=== PATIENT | female | born 1990 | race Caucasian/White ===

== ENCOUNTER 2016-12-27 20:31 | Emergency (ER) | payer BC ==
[2016-12-27 21:05] VITALS: BP 132/69
[2016-12-27] MEDS ORDERED: Acetaminophen 325 MG Tab PO ONE (21:59)
--- NOTE | 2016-12-27 22:10 | EDM.PDOC ---
ED HPI GENERAL MEDICAL PROBLEM - General Chief Complaint: ENT Problem Stated Complaint: 10 WKS PREG/FEVER/SORE THROAT Time Seen by Provider: 12/27/16 21:33 Source of Information: Reports: Patient History Limitations: Reports: No Limitations - History of Present Illness INITIAL COMMENTS - FREE TEXT/NARRATIVE: sinus headache and congestion; this is a 26 year old female presents to ER for evaluation. She reports is camping near [place], [place]. , has been sick since weekend on Sunday, called her Family Doctor who was going to order antibiotic for her, but she declined, she still is not any better. at 10 weeks 3 days; denies any spotting, bleeding or discharge, no cramping. Onset: Gradual Duration: Getting Worse Location: Reports: Head Quality: Reports: Pressure, Throbbing (pressure in sinus) Severity: Moderate Improves with: Reports: None Worsens with: Reports: None Associated Symptoms: Reports: Cough, Fever/Chills, Loss of Appetite Treatments [employer]: Reports: Acetaminophen Bilateral Headache Pain Score (Numeric/FACES): 6 - Related Data Allergies Allergy/AdvReac Type Severity Reaction Status Date / Time No Known Allergies Allergy Verified 12/27/16 21:09 Home Meds: Home Meds Vits #93/Iron Fum/FA [ Formula Tablet] 1 tab PO DAILY 12/27/16 [History] Past Medical History Musculoskeletal History: Reports: Other (See Below) Other Musculoskeletal History: surgery on legs in 2005 - Past Surgical History HEENT Surgical History: Reports: Tonsillectomy, Other (See Below) Other HEENT Surgeries/Procedures: cyst removed from throat, right tonsil Social & Family History - Tobacco Use Smoking Status *Q: Never Smoker - Caffeine Use Caffeine Use: Reports: None - Recreational Drug Use Recreational Drug Use: No - Living Situation & Occupation Living situation: Reports: , with Family ED ROS ENT - Review of Systems Review Of Systems: See Below Constitutional: Reports: Other (upper respiratory illness) HEENT: Reports: Sinus Problem, Throat Pain Respiratory: Reports: Cough, Sputum Cardiovascular: Reports: No Symptoms Endocrine: Reports: No Symptoms GI/Abdominal: Reports: No Symptoms : Reports: No Symptoms Musculoskeletal: Reports: No Symptoms, Muscle Pain Neurological: Reports: No Symptoms Psychiatric: Reports: No Symptoms Hematologic/Lymphatic: Reports: No Symptoms Immunologic: Reports: No Symptoms ED EXAM, ENT - Physical Exam Exam: See Below Exam Limited By: No Limitations General Appearance: Alert, WD/WN, Mild Distress, Other (frequent cough, nasal sounding voice) Eye Exam: Bilateral Eye: Normal Inspection Ears: Normal External Exam, Normal Canal, Hearing Grossly Normal, TM Dullness Nose: Nasal Discharge, Nasal Swelling, Nasal Tenderness Mouth/Throat: Normal Gums, Normal Lips, Normal Teeth, Tonsillar Erythema Head: Atraumatic, Normocephalic, Sinus Tenderness Neck: Normal Inspection, Supple, Non-Tender, Full Range of Motion Respiratory/Chest: No Respiratory Distress, Lungs Clear, Normal Breath Sounds, Other (cough present) Cardiovascular: Normal Peripheral Pulses, Regular Rate, Rhythm, No Edema, No Gallop, No Murmur GI/Abdominal: Normal Bowel Sounds, Soft, Non-Tender, No Organomegaly, No Distention, No Abnormal Bruit, No Mass (Female) Exam: Deferred Rectal (Female) Exam: Deferred Back: Normal Inspection, Full Range of Motion Extremities: Normal Inspection, Normal Range of Motion, Non-Tender, No Pedal Edema Neurological: Alert, Oriented, CN II-XII Intact, Normal Cognition, Normal Gait, Normal Reflexes, No Motor/Sensory Deficits Psychiatric: Normal Affect, Normal Mood Skin: Warm, Dry, Intact, Normal Color, No Rash Lymphatic: No Adenopathy Course - Vital Signs Last Recorded V/S: Last Vital Signs Temp 37.3 C 12/27/16 22:03 Pulse 65 12/27/16 21:04 Resp 14 12/27/16 21:04 BP 132/69 12/27/16 21:04 Pulse Ox 94 L 12/27/16 21:04 - Orders/Labs/Meds Orders: Active Orders 24 hr Category Date Time Status CULTURE STREP A CONFIRMATION [] Stat Lab 12/27/16 21:55 Results STREP SCRN A RAPID W CULT CONF [] Stat Lab 12/27/16 21:55 Results Labs: Laboratory Tests 12/27/16 Range/Units 21:55 Urine Color Yellow Urine Appearance Slightly cloudy Urine pH 7.0 (4.5-8.0) Ur Specific [place] 1.005 L (1.008-1.030) Urine Protein Negative (NEGATIVE) mg/dL Urine Glucose (UA) Normal (NEGATIVE) mg/dL Urine Ketones Negative (NEGATIVE) mg/dL Urine Occult Blood Large (NEGATIVE) Urine Nitrite Negative (NEGATIVE) Urine Bilirubin Negative (NEGATIVE) Urine Urobilinogen Normal (NORMAL) mg/dL Ur Leukocyte Esterase Negative (NEGATIVE) Urine RBC 5-10 H (0-5) Urine WBC 0-5 (0-5) Ur Epithelial Cells Rare Amorphous Sediment Not seen Urine Bacteria Rare Urine Mucus Not seen Meds: Medications Discontinued Medications Generic Name Dose Route Start Last Admin Trade Name Florentinoq PRN Reason Stop Dose Admin Acetaminophen 650 mg 12/27/16 21:59 12/27/16 22:03 Tylenol PO 12/27/16 22:00 650 mg NOW ONE Administration Departure - Departure Time of Disposition: 22:26 Disposition: Home, Self-Care 01 Clinical Impression: Acute sinus infection, Cough - Discharge Information Referrals: PCP,None [Primary Care Provider] - Forms: ED Department Discharge Care Plan Goals: acute sinus infection with cough -start tonight; Zithromax 500mg now, then take one tablet daily for 4 days -Robitussin AC 5 to 10 ml every 4 to 6 hours as needed for painful cough -push fluids -rest follow up with Primary Care Provider for recheck on Sunday, return to clinic or er sooner if has any concerns. - Problem List & Annotations (1) Acute sinus infection SNOMED Code(s): 96697413 Code(s): J01.90 - ACUTE SINUSITIS, UNSPECIFIED Status: Acute Priority: High Current Visit: Yes Qualifiers: Sinusitis location: maxillary Recurrence: non-recurrent Qualified Code(s) : J01.00 - Acute maxillary sinusitis, unspecified (2) Cough SNOMED Code(s): 22709869 Code(s): R05 - COUGH Status: Acute Priority: Medium Current Visit: Yes - My Orders Last 24 Hours: My Active Orders 12/27/16 21:55 CULTURE STREP A CONFIRMATION [RM] Stat STREP SCRN A RAPID W CULT CONF [] Stat - Assessment/Plan Last 24 Hours: My Active Orders 12/27/16 21:55 CULTURE STREP A CONFIRMATION [RM] Stat STREP SCRN A RAPID W CULT CONF [] Stat Plan: acute sinus infection with cough -start tonight; Zithromax 500mg now, then take one tablet daily for 4 days -Robitussin AC 5 to 10 ml every 4 to 6 hours as needed for painful cough -push fluids -rest follow up with Primary Care Provider for recheck on Sunday, return to clinic or er sooner if has any concerns.
== END 2016-12-27 22:37 | disposition home or self-care (01) ==
LOC: JP.ED 20:31
DX: O99.511 Diseases of the respiratory system complicating pregnancy, first trimester (principal); J01.90 Acute sinusitis, unspecified; Z3A.10 10 weeks gestation of pregnancy; Z98.890 Other specified postprocedural states
CPT/HCPCS: 81001; 87081; 87430; 99284; A9270